=== PATIENT | female | born 1990 | race American Indian/Alaskan Native ===

== ENCOUNTER 2019-07-13 15:17 | Emergency (ER) | payer MEDICAID, OTHER ==
--- NOTE | 2019-07-13 15:24 | Event Note ---
ED Screening Note ED Screening Note: hx of schizophrenia, aunt informed EMS noncompliant with medications, delusional thoughts, disorganized thought pattern, pressured speech evident This initial assessment/diagnostic orders/clinical plan/treatment(s) is/are subject to change based on patients health status, clinical progression and re-assessment by fellow clinical providers in the ED. Further treatment and workup at subsequent clinical providers discretion. Patient/guardian urged not to elope from the ED as their condition may be serious if not clinically assessed and managed. Initial orders include: labs
[2019-07-13 16:53] LABS: Hemoglobin 11.6 gm/dl (10.1-14.3); Mean Corpuscular HGB Conc 33 % (30-34); Mean Corpuscular Volume 85 fl (79-97); Platelet Count 199 K/mm3 (140-440); Red Blood Count 4.13 M/mm3 (3.65-5.03)
[2019-07-13 17:11] LABS: Bilirubin,Urine NEG (Negative); Blood,Urine NEG (Negative); Color,Urine Yellow (Yellow); Mucus,Urine FEW /HPF; Protein,Urine <15 mg/dL mg/dL (Negative); Urobilinogen,Urine < 2.0 mg/dL (<2.0)
[2019-07-13 17:17] LABS: Alanine Aminotransferase 11 units/L (7-56); Albumin 3.8 g/dL (3.9-5); BUN/Creatinine Ratio 14; Blood Urea Nitrogen 11 mg/dL (7-17); Calcium 9.1 mg/dL (8.4-10.2); Hemolysis Index 4
[2019-07-13 17:42] LABS: Amphetamine Screen,Urine PRESUMPTIVE NEGATIVE; Cocaine Screen,Urine PRESUMPTIVE NEGATIVE; Methadone Screen,Urine PRESUMPTIVE NEGATIVE; Opiate Screen,Urine PRESUMPTIVE NEGATIVE
[2019-07-13 17:48] LABS: Anisocytosis 2+; Basophils % (Manual) 0 % (0.0-1.8); Total Cells Counted 100
[2019-07-13 17:49] LABS: Dimorphic RBC Yes; Large Platelets 1+; Schistocytes 1+
[2019-07-13 18:04] LABS: Benzodiazepines Screen,Urine PRESUMPTIVE POSITIVE; Cannabinoid Screen,Urine PRESUMPTIVE POSITIVE
[2019-07-13] MEDS ORDERED: LORazepam 1 MG TAB PO ONE (18:13)
[2019-07-13] MEDS ORDERED: ACETAMINOPHEN 500 MG TAB PO ONE (18:13)
[2019-07-13] MEDS ORDERED: FLUCONAZOLE 100 MG TAB PO ONE (18:29)
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
[2019-07-13 20:30] VITALS: BP 98/70
[2019-07-13] MEDS ORDERED: NITROFURANTOIN MONOHYD/M-CRYST 100 MG CAP PO SCH (22:00)
== END 2019-07-13 20:35 ==
LOC: ED 15:17
DX: F23 Brief psychotic disorder (principal); F41.9 Anxiety disorder, unspecified; N39.0 Urinary tract infection, site not specified; J45.909 Unspecified asthma, uncomplicated; F12.10 Cannabis abuse, uncomplicated; Z79.899 Other long term (current) drug therapy
CPT/HCPCS: 36415; 80053; 80307; 80320; 81001; 84703; 85007; 85025; 99285; G0480

== ENCOUNTER 2019-07-22 18:12 | Emergency (ER) | payer MEDICAID ==
--- NOTE | 2019-07-22 18:21 | Emergency Department Report ---
Stated Complaint: PREG TEST Time Seen by Provider: 07/22/19 18:19 - HPI History of Present Illness: pt presents to the ED for a test states that she has had light spotting for two weeks no abd pain, no n/v/d, no fever, no CP, no SOB, no dizziness, no lightheadedness states she is also out of her bipolar and anxiety medication she denies any HI she denies any SI she has very tangenital speech, appears paranoid, talks about multiple topics and never goes back to original thought process MSE screening note: Focused history and physical exam performed. ED Disposition for MSE Condition: Stable
[2019-07-22 18:50] VITALS: BP 102/65
[2019-07-22 19:01] LABS: Hematocrit 34.5 % (30.3-42.9); Hemoglobin 11.6 gm/dl (10.1-14.3); Mean Corpuscular HGB Conc 34 % (30-34); Mean Corpuscular Volume 85 fl (79-97); Platelet Count 214 K/mm3 (140-440); Red Blood Count 4.07 M/mm3 (3.65-5.03)
[2019-07-22 19:02] LABS: Red Cell Distribution Width 23.1 % (13.2-15.2)
[2019-07-22 19:16] LABS: Alanine Aminotransferase 9 units/L (7-56); BUN/Creatinine Ratio 18; Blood Urea Nitrogen 18 mg/dL (7-17); Calcium 8.9 mg/dL (8.4-10.2); Hemolysis Index 6
[2019-07-22 19:41] LABS: Basophils % (Manual) 0 % (0.0-1.8); Eosinophils % (Manual) 0 % (0.0-4.3); Total Cells Counted 100
[2019-07-22 19:42] LABS: Anisocytosis 2+; Dimorphic RBC Yes; Macrocytosis 1+; Schistocytes Rare; Target Cells Rare
[2019-07-22 19:43] LABS: Giant Platelets Rare; Large Platelets 1+; Platelet Estimate Consistent w Auto
--- NOTE | 2019-07-22 20:46 | Emergency Department Report ---
ED General Adult HPI - General Chief complaint: Psych Stated complaint: PREG TEST Time Seen by Provider: 07/22/19 18:19 Source: patient, RN notes reviewed, old records reviewed Mode of arrival: Ambulatory Limitations: No Limitations - History of Present Illness Initial comments: Patient is a 29-year-old female. The patient is not known to myself previously. The patient has a history of psychiatric disease. She presents to the ER today with a primary complaint of anxiety, and request to have Seroquel and alprazolam refilled. The patient specifically denies homicidality, suicidality, access to guns or firearms, wanting to harm herself or harm other people. The patient has resolved abdominal pain. The patient makes no complaint of overdose. The patient was recently seen at this hospital, and transferred to a psychiatric facility. -: Gradual Quality: other (Patient does not describe qualitative nature of symptoms, exacerbating or relieving factor) Consistency: constant - Related Data Previous Rx's Medication Instructions Recorded Last Taken Type Fluconazole [Diflucan TAB] 150 mg PO ONCE #1 tablet 07/13/19 Unknown Rx Nitrofurantoin Bailey/M-Cryst 100 mg PO Q12HR #14 capsule 07/13/19 Unknown Rx [Macrobid CAP] Allergies Allergy/AdvReac Type Severity Reaction Status Date / Time No Known Allergies Allergy Verified 07/13/19 18:31 ED Review of Systems ROS: Stated complaint: PREG TEST Other details as noted in HPI Constitutional: denies: fever Eyes: as per HPI ENT: as per HPI Respiratory: see HPI Cardiovascular: as per HPI Endocrine: see HPI Gastrointestinal: as per HPI Genitourinary: as per HPI Musculoskeletal: as per HPI Skin: as per HPI Neurological: as per HPI Psychiatric: as per HPI, anxiety. denies: homicidal thoughts, suicidal thoughts ED Past Medical Hx - Past Medical History Previous Medical History?: Yes Hx Asthma: Yes - Surgical History Past Surgical History?: Yes Additional Surgical History: . tummy tuck - Social History Smoking Status: Unknown if ever smoked Substance Use Type: Marijuana - Medications Home Medications: Home Medications Medication Instructions Recorded Confirmed Last Taken Type Fluconazole [Diflucan TAB] 150 mg PO ONCE #1 tablet 07/13/19 Unknown Rx Nitrofurantoin Bailey/M-Cryst 100 mg PO Q12HR #14 capsule 07/13/19 Unknown Rx [Macrobid CAP] ED Physical Exam - General Limitations: No Limitations General appearance: alert, anxious - Head Head exam: Present: atraumatic, normocephalic - Eye Eye exam: Present: normal appearance, PERRL, EOMI, other (Visual acuity is intact to finger counting and color perception at a close distance). Absent: nystagmus - ENT ENT exam: Present: normal exam, normal orophraynx, mucous membranes moist, normal external ear exam - Neck Neck exam: Present: normal inspection, full ROM. Absent: tenderness, menin gismus - Respiratory Respiratory exam: Present: normal lung sounds bilaterally. Absent: respiratory distress - Cardiovascular Cardiovascular Exam: Present: regular rate, normal rhythm, normal heart sounds. Absent: bradycardia, tachycardia, irregular rhythm, systolic murmur, diastolic murmur, rubs, gallop - GI/Abdominal GI/Abdominal exam: Present: soft, normal bowel sounds. Absent: distended, tenderness, guarding, rebound, rigid, pulsatile mass - Extremities Exam Extremities exam: Present: normal inspection, full ROM, other (2+ pulses noted in the bilateral upper and lower extremities. There is no palpable cord. negative Homans sign. Muscular compartments are soft. The pelvis is stable.). Absent: pedal edema, calf tenderness - Back Exam Back exam: Present: normal inspection, full ROM. Absent: CVA tenderness (L), paraspinal tenderness, vertebral tenderness - Neurological Exam Neurological exam: Present: alert, oriented X3, normal gait, other (There is no facial droop. The tongue is midline. Extraocular movements are intact bilaterally. There is 5 out of 5 strength in bilateral upper and lower extremities. Sensation is intact to light touch bilateral upper and lower extremities. There is no past-pointing. There is a normal gait.). Absent: motor sensory deficit - Psychiatric Psychiatric exam: Present: anxious, other (Patient able to 2+2, 4+4, 55, subtract 100-7.). Absent: homicidal ideation, suicidal ideation - Skin Skin exam: Present: warm, dry, intact, normal color. Absent: rash ED Course Vital Signs 07/22/19 07/22/19 18:48 21:53 Temperature 98.4 F Pulse Rate 82 Respiratory 18 20 Rate Blood Pressure 102/65 O2 Sat by Pulse 98 98 Oximetry ED Medical Decision Making - Lab Data Result diagrams: 07/22/19 18:41 07/22/19 18:41 Vital Signs 07/22/19 18:48 Temperature 98.4 F Pulse Rate 82 Respiratory 18 Rate Blood Pressure 102/65 O2 Sat by Pulse 98 Oximetry Lab Results 07/22/19 07/22/19 07/22/19 Range/Units 18:41 18:41 18:41 WBC 6.5 (4.5-11.0) K/mm3 RBC 4.07 (3.65-5.03) M/mm3 Hgb 11.6 (10.1-14.3) gm/dl Hct 34.5 (30.3-42.9) % MCV 85 (79-97) fl MCH 29 (28-32) pg MCHC 34 (30-34) % RDW 23.1 H (13.2-15.2) % Plt Count 214 (140-440) K/mm3 Add Manual Diff Complete Total Counted 100 Seg Neuts % (Manual) 37.0 L (40.0-70.0) % Band Neutrophils % 0 % Lymphocytes % (Manual) 54.0 H (13.4-35.0) % Reactive Lymphs % (Man) 0 % Monocytes % (Manual) 9.0 H (0.0-7.3) % Eosinophils % (Manual) 0 (0.0-4.3) % Basophils % (Manual) 0 (0.0-1.8) % Metamyelocytes % 0 % Myelocytes % 0 % Promyelocytes % 0 % Blast Cells % 0 % Nucleated RBC % Not Reportable Seg Neutrophils # Man 2.4 (1.8-7.7) K/mm3 Band Neutrophils # 0.0 K/mm3 Lymphocytes # (Manual) 3.5 (1.2-5.4) K/mm3 Abs React Lymphs (Man) 0.0 K/mm3 Monocytes # (Manual) 0.6 (0.0-0.8) K/mm3 Eosinophils # (Manual) 0.0 (0.0-0.4) K/mm3 Basophils # (Manual) 0.0 (0.0-0.1) K/mm3 Metamyelocytes # 0.0 K/mm3 Myelocytes # 0.0 K/mm3 Promyelocytes # 0.0 K/mm3 Blast Cells # 0.0 K/mm3 WBC Morphology Not Reportable Hypersegmented Neuts Not Reportable Hyposegmented Neuts Not Reportable Hypogranular Neuts Not Reportable Smudge Cells Not Reportable Toxic Granulation Not Reportable Toxic Vacuolation Not Reportable Dohle Bodies Not Reportable Pelger-Huet Anomaly Not Reportable Doug Rods Not Reportable Platelet Estimate Consistent w auto Clumped Platelets Not Reportable Plt Clumps, EDTA Not Reportable Large Platelets 1+ Giant Platelets Rare Platelet Satelliting Not Reportable Plt Morphology Comment Not Reportable RBC Morphology Not Reportable Dimorphic RBCs Yes Polychromasia Few Hypochromasia Not Reportable Poikilocytosis Not Reportable Anisocytosis 2+ Microcytosis 1+ Macrocytosis 1+ Spherocytes Not Reportable Pappenheimer Bodies Not Reportable Sickle Cells Not Reportable Target Cells Rare Tear Drop Cells Not Reportable Ovalocytes Not Reportable Helmet Cells Not Reportable [place] Bodies Not Reportable [place] Rings Not Reportable [place] Cells Not Reportable Bite Cells Not Reportable Crenated Cell Not Reportable Elliptocytes Not Reportable Acanthocytes (Spur) Not Reportable Rouleaux Not Reportable Hemoglobin C Crystals Not Reportable Schistocytes Rare Malaria parasites Not Reportable Enrique Bodies Not Reportable Hem Pathologist Commnt No Sodium 139 (137-145) mmol/L Potassium 4.0 (3.6-5.0) mmol/L Chloride 105.4 (98-107) mmol/L Carbon Dioxide 24 (22-30) mmol/L Anion Gap 14 mmol/L BUN 18 H (7-17) mg/dL Creatinine 1.0 (0.7-1.2) mg/dL Estimated GFR > 60 ml/min BUN/Creatinine Ratio 18 % Glucose 75 (65-100) mg/dL Calcium 8.9 (8.4-10.2) mg/dL Total Bilirubin < 0.20 (0.1-1.2) mg/dL AST 14 (5-40) units/L ALT 9 (7-56) units/L Alkaline Phosphatase 60 (35-129) units/L Total Protein 6.9 (6.3-8.2) g/dL Albumin 4.0 (3.9-5) g/dL Albumin/Globulin Ratio 1.4 % HCG, Qual (Negative) Salicylates < 0.3 L (2.8-20.0) mg/dL Acetaminophen (10.0-30.0) ug/mL 04/05/20 04/05/20 Range/Units 18:41 18:41 WBC (4.5-11.0) K/mm3 RBC (3.65-5.03) M/mm3 Hgb (10.1-14.3) gm/dl Hct (30.3-42.9) % MCV (79-97) fl MCH (28-32) pg MCHC (30-34) % RDW (13.2-15.2) % Plt Count (140-440) K/mm3 Add Manual Diff Total Counted Seg Neuts % (Manual) (40.0-70.0) % Band Neutrophils % % Lymphocytes % (Manual) (13.4-35.0) % Reactive Lymphs % (Man) % Monocytes % (Manual) (0.0-7.3) % Eosinophils % (Manual) (0.0-4.3) % Basophils % (Manual) (0.0-1.8) % Metamyelocytes % % Myelocytes % % Promyelocytes % % Blast Cells % % Nucleated RBC % Seg Neutrophils # Man (1.8-7.7) K/mm3 Band Neutrophils # K/mm3 Lymphocytes # (Manual) (1.2-5.4) K/mm3 Abs React Lymphs (Man) K/mm3 Monocytes # (Manual) (0.0-0.8) K/mm3 Eosinophils # (Manual) (0.0-0.4) K/mm3 Basophils # (Manual) (0.0-0.1) K/mm3 Metamyelocytes # K/mm3 Myelocytes # K/mm3 Promyelocytes # K/mm3 Blast Cells # K/mm3 WBC Morphology Hypersegmented Neuts Hyposegmented Neuts Hypogranular Neuts Smudge Cells Toxic Granulation Toxic Vacuolation Dohle Bodies Pelger-Huet Anomaly Doug Rods Platelet Estimate Clumped Platelets Plt Clumps, EDTA Large Platelets Giant Platelets Platelet Satelliting Plt Morphology Comment RBC Morphology Dimorphic RBCs Polychromasia Hypochromasia Poikilocytosis Anisocytosis Microcytosis Macrocytosis Spherocytes Pappenheimer Bodies Sickle Cells Target Cells Tear Drop Cells Ovalocytes Helmet Cells [place]ijer[place]-Ensley Bodies Hammond Rings Franklin Cells Bite Cells Crenated Cell Elliptocytes Acanthocytes (Spur) Rouleaux Hemoglobin C Crystals Schistocytes Malaria parasites Enrique Bodies Hem Pathologist Commnt Sodium (137-145) mmol/L Potassium (3.6-5.0) mmol/L Chloride (98-107) mmol/L Carbon Dioxide (22-30) mmol/L Anion Gap mmol/L BUN (7-17) mg/dL Creatinine (0.7-1.2) mg/dL Estimated GFR ml/min BUN/Creatinine Ratio % Glucose (65-100) mg/dL Calcium (8.4-10.2) mg/dL Total Bilirubin (0.1-1.2) mg/dL AST (5-40) units/L ALT (7-56) units/L Alkaline Phosphatase (35-129) units/L Total Protein (6.3-8.2) g/dL Albumin (3.9-5) g/dL Albumin/Globulin Ratio % HCG, Qual Negative (Negative) Salicylates (2.8-20.0) mg/dL Acetaminophen < 5.0 L (10.0-30.0) ug/mL - Medical Decision Making Differential diagnosis, including but not limited to: Anxiety, mood disorder, di sorganized behavior Assessment and plan: 29-year-old female with anxiety, who is alert and oriented to name, location, month and year, who is not homicidal or suicidal, who follows commands, who is clinically sober, with an unremarkable physical examination, with anxiety, and some disorganized behavior. However, she is able to be calmed down, and we are able to have a lucid conversation. The patient does not appear to have an emergent medical condition at this time. At this point in time, she does not meet criteria for 1013. She was instructed that she may follow-up with an outpatient psychiatrist. Return precautions are reviewed. She denied symptoms of coronavirus Critical care attestation.: If time is entered above; I have spent that time in minutes in the direct care of this critically ill patient, excluding procedure time. ED Disposition Clinical Impression: History of anxiety Disposition: DC-01 TO HOME OR SELFCARE Is pt being admited?: No Does the pt Need Aspirin: No Condition: Stable Additional Instructions: Avoid consumption of alcohol, marijuana, Percocet, and recreational drugs. Patient at this point in time does not appear to have an immediate medical contraindication to outpatient psychiatric evaluation and intervention. The patient may follow-up at [facility], or the local health department at her convenience. Return to the emergency room right away with suicidality, homicidality, overdose, or new, worsened or different symptoms not present on the initial emergency room evaluation. [facility] in [place], [place] Address: [address], [place] [address] [facility] in the [place], [place] Address: [address] [place] [address] , [place] [address] Referrals: MARTA WARREN MD [Other] - 3-5 Days [facility] [Outside] - 3-5 Days
== END 2019-07-22 21:00 | disposition home or self-care (01) ==
LOC: ED 18:12
DX: F41.9 Anxiety disorder, unspecified (principal); Z76.0 Encounter for issue of repeat prescription; J45.909 Unspecified asthma, uncomplicated; F12.10 Cannabis abuse, uncomplicated
CPT/HCPCS: 36415; 80053; 80320; 84703; 85007; 85025; G0480

== ENCOUNTER 2019-09-06 08:07 | Emergency (ER) | payer MEDICAID ==
[2019-09-06] MEDS ORDERED: LORazepam 2 MG/ML VIAL IM ONE (08:16)
[2019-09-06] MEDS: ZIPRASIDONE MESYLATE 20 MG VIAL IM PRN ×2 (08:24→23:15)
--- NOTE | 2019-09-06 08:55 | Emergency Department Report ---
ED Psych HPI - General Chief Complaint: Psych Stated Complaint: EVALUATION Time Seen by Provider: 09/06/19 08:52 Source: EMS Mode of arrival: Stretcher - History of Present Illness Initial Comments: This is a 29-year-old female with an apparent history of benzodiazepine dependency and acute psychosis. She presents to the emergency department with an excited delirium. She is given Geodon and Ativan. She has had a therapeutic response. After medication administration the patient is much more coherent although she has occasional flight of ideas. She states "I had a mental breakdown". She denies suicidal ideation. She states she has a history of bipolar disorder. She started to ramble somewhat about celebrities but otherwise is entirely cooperative at this time. She states that she has been off her Xanax for months. She also has not compliant with her Seroquel 300 mg nightly. Previous emergency department visit resulted in 1013 for acute psychosis: Patient is a 29-year-old F [place] female who states that she is here to get her Xanax. She states that she was being given Xanax by a provider named Aleyda Wu whom she references quite frequently. States that she was just at a psych facility needed would not give it to her. Patient states she needs her medications otherwise she feels as though she is going to hurt her baby's father. 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 Patient not complaining of any other complaints at this time. Complaint: other (Very agitated) -: hour(s) Associated Psychiatric Symptoms: racing thoughts History of same: Yes Quality: constant Improves With: none Worsens With: none Context: not taking psychiatric Associated Symptoms: denies other symptoms Treatments Prior to Arrival: placed on mental he - Related Data Previous Rx's Medication Instructions Recorded Last Taken Type Fluconazole (Nf) [Diflucan TAB] 150 mg PO ONCE #1 tablet 07/13/19 Unknown Rx Nitrofurantoin [place]/M-Cryst 100 mg PO Q12HR #14 capsule 07/13/19 Unknown Rx [Macrobid CAP] Nitrofurantoin [place]/M-Cryst 100 mg PO Q12HR #14 capsule 09/06/19 Unknown Rx [Macrobid CAP] Allergies Allergy/AdvReac Type Severity Reaction Status Date / Time No Known Allergies Allergy Verified 07/13/19 18:31 ED Review of Systems ROS: Stated complaint: EVALUATION Other details as noted in HPI Constitutional: denies: chills, fever Eyes: denies: eye pain, vision change ENT: denies: ear pain, throat pain Respiratory: denies: cough, shortness of breath Cardiovascular: denies: chest pain, palpitations Endocrine: no symptoms reported Gastrointestinal: denies: abdominal pain, nausea, diarrhea Genitourinary: denies: urgency, abnormal menses Musculoskeletal: denies: back pain, arthralgia Skin: denies: rash, lesions Neurological: denies: headache, weakness, paresthesias Psychiatric: as per HPI Hematological/Lymphatic: denies: easy bleeding, easy bruising ED Past Medical Hx - Past Medical History Hx Asthma: Yes - Surgical History Additional Surgical History: . tummy tuck - Social History Smoking Status: Current Every Day Smoker Substance Use Type: Marijuana - Medications Home Medications: Home Medications Medication Instructions Recorded Confirmed Last Taken Type Fluconazole (Nf) [Diflucan TAB] 150 mg PO ONCE #1 tablet 07/13/19 Unknown Rx Nitrofurantoin [place]/M-Cryst 100 mg PO Q12HR #14 capsule 07/13/19 Unknown Rx [Macrobid CAP] Nitrofurantoin [place]/M-Cryst 100 mg PO Q12HR #14 capsule 09/06/19 Unknown Rx [Macrobid CAP] ED Physical Exam - General Limitations: No Limitations, Altered Mental Status (Initially very agitated and shouting later no limitations), Physical Limitation General appearance: alert, in no apparent distress - Head Head exam: Present: atraumatic, normocephalic - Eye Eye exam: Present: normal appearance, PERRL, EOMI. Absent: scleral icterus - ENT ENT exam: Present: mucous membranes moist - Neck Neck exam: Present: normal inspection - Respiratory Respiratory exam: Present: normal lung sounds bilaterally. Absent: respiratory distress - Cardiovascular Cardiovascular Exam: Present: regular rate, normal rhythm. Absent: systolic murmur, diastolic murmur, rubs, gallop - GI/Abdominal GI/Abdominal exam: Present: soft, normal bowel sounds. Absent: distended, tenderness, guarding, rebound, rigid - Extremities Exam Extremities exam: Present: normal inspection - Back Exam Back exam: Present: normal inspection - Neurological Exam Neurological exam: Present: alert, oriented X3, CN II-XII intact. Absent: motor sensory deficit - Psychiatric Psychiatric exam: Present: agitated, manic - Skin Skin exam: Present: warm, dry, intact, normal color. Absent: rash ED Course - Reevaluation(s) Reevaluation #1: Patient seen by mental health peoplesoft consultant. 1013 requested. I will fill out. We will restart the patient's Seroquel. Transfer to a a psychiatric facility is pending. 09/06/19 15:10 09/06/19 15:21 ED Medical Decision Making - Lab Data Result diagrams: 09/06/19 Unknown 09/06/19 Unknown Laboratory Results - last 24 hr 09/06/19 09/06/19 09/06/19 13:08 13:08 Unknown WBC RBC Hgb Hct MCV MCH MCHC RDW Plt Count Lymph % (Auto) [place] % (Auto) Eos % (Auto) Baso % (Auto) Lymph # [place] # Eos # Baso # Seg Neutrophils % Seg Neutrophils # Sodium Potassium Chloride Carbon Dioxide Anion Gap BUN Creatinine Estimated GFR BUN/Creatinine Ratio Glucose Calcium Total Creatine Kinase CK-MB (CK-2) CK-MB (CK-2) Rel Index Urine Color Yellow Urine Turbidity Slightly-cloudy Urine pH 6.0 Ur Specific [place] 1.006 Urine Protein <15 mg/dl Urine Glucose (UA) Neg Urine Ketones 20 Urine Blood Neg Urine Nitrite Neg Urine Bilirubin Neg Urine Urobilinogen < 2.0 Ur Leukocyte Esterase Lg Urine WBC (Auto) 26.0 H Urine RBC (Auto) 4.0 U Epithel Cells (Auto) 10.0 Urine Bacteria (Auto) 1+ Urine Mucus 1+ Salicylates < 0.3 L Urine Opiates Screen Presumptive negative Urine Methadone Screen Presumptive negative Acetaminophen Ur Barbiturates Screen Presumptive negative Ur Phencyclidine Scrn Presumptive negative Ur Amphetamines Screen Presumptive negative U Benzodiazepines Scrn Presumptive negative Urine Cocaine Screen Presumptive negative U Marijuana (THC) Screen Presumptive positive Drugs of Abuse Note Disclamer Plasma/Serum Alcohol 09/06/19 09/06/19 09/06/19 Unknown Unknown Unknown WBC RBC Hgb Hct MCV MCH MCHC RDW Plt Count Lymph % (Auto) [place] % (Auto) Eos % (Auto) Baso % (Auto) Lymph # [place] # Eos # Baso # Seg Neutrophils % Seg Neutrophils # Sodium 138 Potassium 3.7 Chloride 103.7 Carbon Dioxide 21 L Anion Gap 17 BUN 3 L Creatinine 0.7 Estimated GFR > 60 BUN/Creatinine Ratio 4 Glucose 151 H Calcium 8.7 Total Creatine Kinase CK-MB (CK-2) CK-MB (CK-2) Rel Index Urine Color Urine Turbidity Urine pH Ur Specific [place] Urine Protein Urine Glucose (UA) Urine Ketones Urine Blood Urine Nitrite Urine Bilirubin Urine Urobilinogen Ur Leukocyte Esterase Urine WBC (Auto) Urine RBC (Auto) U Epithel Cells (Auto) Urine Bacteria (Auto) Urine Mucus Salicylates Urine Opiates Screen Urine Methadone Screen Acetaminophen < 5.0 L Ur Barbiturates Screen Ur Phencyclidine Scrn Ur Amphetamines Screen U Benzodiazepines Scrn Urine Cocaine Screen U Marijuana (THC) Screen Drugs of Abuse Note Plasma/Serum Alcohol < 0.01 09/06/19 09/06/19 Unknown Unknown WBC 4.6 RBC 4.57 Hgb 13.6 Hct 40.2 MCV 88 MCH 30 MCHC 34 RDW 17.4 H Plt Count 182 Lymph % (Auto) 43.4 H [place] % (Auto) 9.0 H Eos % (Auto) 0.3 Baso % (Auto) 0.4 Lymph # 2.0 [place] # 0.4 Eos # 0.0 Baso # 0.0 Seg Neutrophils % 46.9 Seg Neutrophils # 2.1 Sodium Potassium Chloride Carbon Dioxide Anion Gap BUN Creatinine Estimated GFR BUN/Creatinine Ratio Glucose Calcium Total Creatine Kinase 72 CK-MB (CK-2) < 1.0 CK-MB (CK-2) Rel Index 1.3 Urine Color Urine Turbidity Urine pH Ur Specific [place] Urine Protein Urine Glucose (UA) Urine Ketones Urine Blood Urine Nitrite Urine Bilirubin Urine Urobilinogen Ur Leukocyte Esterase Urine WBC (Auto) Urine RBC (Auto) U Epithel Cells (Auto) Urine Bacteria (Auto) Urine Mucus Salicylates Urine Opiates Screen Urine Methadone Screen Acetaminophen Ur Barbiturates Screen Ur Phencyclidine Scrn Ur Amphetamines Screen U Benzodiazepines Scrn Urine Cocaine Screen U Marijuana (THC) Screen Drugs of Abuse Note Plasma/Serum Alcohol Critical care attestation.: If time is entered above; I have spent that time in minutes in the direct care of this critically ill patient, excluding procedure time. ED Disposition Clinical Impression: Acute psychosis UTI (urinary tract infection) Qualifiers: Urinary tract infection type: site unspecified Hematuria presence: without hematuria Qualified Code(s): N39.0 - Urinary tract infection, site not specified Disposition: DC/TX-65 PSY HOSP/PSY UNIT Is pt being admited?: No Does the pt Need Aspirin: No Condition: Stable Instructions: Urinary Tract Infection in Women (ED) Additional Instructions: Rx as directed. Follow-up on your urine culture with a primary care physician. Prescriptions: Nitrofurantoin [place]/M-Cryst [Macrobid CAP] 100 mg PO Q12HR #14 capsule Referrals: PRIMARY CARE, [Primary Care Provider] - 3-5 Days Time of Disposition: 15:13
[2019-09-06 09:03] LABS: Basophils % (Auto) 0.4 % (0.0-1.8); Eosinophils % (Auto) 0.3 % (0.0-4.3); Hematocrit 40.2 % (30.3-42.9); Hemoglobin 13.6 gm/dl (10.1-14.3); Lymphocytes % (Auto) 43.4 % (13.4-35.0); Mean Corpuscular HGB Conc 34 % (30-34); Mean Corpuscular Volume 88 fl (79-97); Monocytes # (Auto) 0.4 K/mm3 (0.0-0.8); Platelet Count 182 K/mm3 (140-440); Red Blood Count 4.57 M/mm3 (3.65-5.03); Red Cell Distribution Width 17.4 % (13.2-15.2)
[2019-09-06 09:26] LABS: BUN/Creatinine Ratio 4; Blood Urea Nitrogen 3 mg/dL (7-17); Calcium 8.7 mg/dL (8.4-10.2); Hemolysis Index 3
[2019-09-06 09:41] LABS: Creatine Kinase MB < 1.0 ng/mL (0.0-4.0)
[2019-09-06 13:51] LABS: Bacteria,Urine 1+ /HPF (Negative); Bilirubin,Urine NEG (Negative); Blood,Urine NEG (Negative); Color,Urine Yellow (Yellow); Mucus,Urine 1+ /HPF; Protein,Urine <15 mg/dL mg/dL (Negative); Urobilinogen,Urine < 2.0 mg/dL (<2.0)
[2019-09-06 13:56] LABS: Amphetamine Screen,Urine PRESUMPTIVE NEGATIVE; Benzodiazepines Screen,Urine PRESUMPTIVE NEGATIVE; Cocaine Screen,Urine PRESUMPTIVE NEGATIVE; Methadone Screen,Urine PRESUMPTIVE NEGATIVE; Opiate Screen,Urine PRESUMPTIVE NEGATIVE
[2019-09-06 14:11] LABS: Cannabinoid Screen,Urine PRESUMPTIVE POSITIVE
[2019-09-06] MEDS ORDERED: levoFLOXacin 500 MG TAB PO ONE (15:12)
[2019-09-06] MEDS ORDERED: ACETAMINOPHEN 325 MG TAB PO PRN (15:24)
[2019-09-06] MEDS ORDERED: MAGNESIUM HYDROXIDE (MOM) ORAL LIQD UDC PO PRN (15:24)
[2019-09-06] MEDS ORDERED: ALUM-MAG HYDROXIDE-SIMETHICONE 200-200-20MG/5ML ORAL LIQD 30 ML PO PRN (15:24)
[2019-09-06] MEDS ORDERED: ACETAMINOPHEN 325 MG TAB PO ONE (15:38)
[2019-09-06] MEDS: NITROFURANTOIN MONOHYD/M-CRYST 100 MG CAP PO SCH ×2 (16:18→22:07)
[2019-09-07 07:44] VITALS: BP 101/72
[2019-09-07] MEDS ORDERED: QUEtiapine 100 MG TAB PO SCH (10:00)
== END 2019-09-07 07:30 ==
LOC: ED 08:07
DX: F23 Brief psychotic disorder (principal); N39.0 Urinary tract infection, site not specified; J45.909 Unspecified asthma, uncomplicated; F17.200 Nicotine dependence, unspecified, uncomplicated; F12.90 Cannabis use, unspecified, uncomplicated; Z79.899 Other long term (current) drug therapy; Z98.890 Other specified postprocedural states
CPT/HCPCS: 36415; 80048; 80307; 81001; 82550; 82553; 85025; 87086; 96372; 99285; J2060; J3486; 80320; G0480